=== PATIENT | male | born 1950 | race African-American/Black ===

== ENCOUNTER 2022-07-25 09:42 | Emergency (ER) | payer MEDICARE, MEDICAID ==
[~2022-07-25 09:42] MED LIST: Lactated Ringer's 1,000 ML BAG ONE
[2022-07-25] MEDS ORDERED: Iopamidol 370 76% 100 ML VIAL ONE (10:46)
[2022-07-25 11:08] LABS: ALT (SGPT) 403 U/L (8-55); AST (SGOT) 373 U/L (5-34); Albumin 2.7 g/dL (3.4-4.8); Alkaline Phosphatase 652 U/L (40-110); Anion Gap 16 mmol/L (10-20); BUN (Urea Nitrogen) 84 mg/dL (8.4-25.7); Bilirubin, Total 0.3 mg/dL (0.2-1.2); Calc. Creatinine Clearance 0 mL/min (70-130); Calcium 10.3 mg/dL (7.8-10.44); Carbon Dioxide 33 mmol/L (23-31); Chloride 104 mmol/L (98-107); Estimated GFR 74; Globulin 4.3 g/dL (2.4-3.5); Glucose 78 mg/dL (83-110); Magnesium 2.7 mg/dL (1.6-2.6); Potassium 4.6 mmol/L (3.5-5.1); Sodium 148 mmol/L (136-145)
[2022-07-25 11:22] LABS: #Lymphocytes 0.7 thou/uL (1.20-3.40); #Monocytes 0.2 thou/uL (0.11-0.59); #Neutrophils 5.1 thou/uL (1.40-6.50); %Basophils 0.5 % (0.0-1.0); %Lymphocytes 11.9 % (21.0-51.0); %Monocytes 3.1 % (0.0-10.0); %Neutrophils 84.6 % (42.0-75.0); Anisocytosis SLIGHT = 6-15 cells (100X) (0-5/hpf); Hypochromia SLIGHT = 6-15 cells (100X) (0-5/hpf); MDiff Complete? YES; Mean Corpuscular HGB CONC 30.5 g/dL (32.0-36.0); Mean Corpuscular Hemoglobin 23.4 pg (27.0-31.0); Mean Corpuscular Volume 76.9 fl (78.0-98.0); Mean Platelet Volume 6.4 fL (7.4-10.4); Microcytosis SLIGHT = 6-15 cells (100X) (0-5/hpf); Platelet Count 606 10x3/uL (130-400); Platelet Morphology Comment Appears Increased; RBC Distribution Width 22.1 % (11.5-14.5); Red Blood Cell (RBC) Count 3.85 mill/uL (4.70-6.10); Target Cells SLIGHT = 2-5 cells (100X) (0-1/hpf)
[2022-07-25 12:22] LABS: Acetaminophen Less than 10.0 mcg/mL (10.0-30.0); Alcohol Less than 10 mg/dL (Less than 10); Salicylate Less than 8.0 mg/dL (15.0-30.0)
[2022-07-25] MEDS ORDERED: Dextrose 50% Abboject 50 ML SYRINGE ONE (13:27)
[2022-07-25 16:34] LABS: HBCM Index 0.07 S/CO (0-0.79); HBSAg Index 0.24 S/CO (0-0.99); Hep A IgM AB Non-Reactive (NonReactive); Hep A IgM S/CO 0.51 S/CO (0-0.79); Hep B Surf Ag Non-Reactive S/CO (NonReactive); Hep C IgG Ab Non-Reactive (NonReactive); Hepatitis B Core IgM Abs Non-Reactive (NonReactive)
== END 2022-07-25 15:35 | disposition home or self-care (01) ==
LOC: MADERS 09:42
DX: D64.9 Anemia, unspecified (principal); E83.41 Hypermagnesemia; E87.3 Alkalosis; R22.1 Localized swelling, mass and lump, neck; R74.01 Elevation of levels of liver transaminase levels; I10 Essential (primary) hypertension; F17.210 Nicotine dependence, cigarettes, uncomplicated; R73.9 Hyperglycemia, unspecified
CPT/HCPCS: 70491; 71045; 80053; 80074; 80307; 82962; 83735; 85025; 94760; U0003; U0005; 36416; 96361; 96374; J7120; J7999; Q9967